=== PATIENT | female | born 1970 | race Caucasian/White ===

== ENCOUNTER → 2016-10-04 | Outpatient (CLI) | payer OTHER | LOC: BRMIMAGING 13:46 | PROVIDERS: ATTEND Family Medicine | DX: R10.31 Right lower quadrant pain (principal); Z90.711 Acquired absence of uterus with remaining cervical stump; Z90.721 Acquired absence of ovaries, unilateral | CPT/HCPCS: 76856-PO ==

== ENCOUNTER → 2016-10-15 | Outpatient (CLI) | payer OTHER | LOC: BMCIMAGING 10:17 | DX: Z12.31 Encounter for screening mammogram for malignant neoplasm of breast (principal) | CPT/HCPCS: G0202 ==